=== PATIENT | female | born 1975 | race Caucasian/White ===

== ENCOUNTER → 2017-10-19 | Outpatient (CLI) | payer OTHER ==
--- NOTE | 2017-10-19 11:27 | XR ---
EXAMINATION TYPE: XR shoulder complete RT DATE OF EXAM: 10/19/2017 COMPARISON: NONE HISTORY: 41-year-old female with acute right shoulder pain TECHNIQUE: 4 views FINDINGS: Mild degenerative joint space narrowing and marginal spurring at the AC joint. The AC joint is congru ent. Subacromial space is preserved. No tendinous or bursal calcifications. Visualized right hemithor ax is clear. IMPRESSION: Mild AC joint OA. No acute osseous abnormality seen.
== END | disposition home or self-care (01) ==
LOC: RADXRYALE 09:33
PROVIDERS: ATTEND Internal Medicine
DX: M19.011 Primary osteoarthritis, right shoulder (principal)